=== PATIENT | male | born 1955 | race Caucasian/White ===

== ENCOUNTER 2021-03-02 15:54 | Emergency (ER) | payer OTHER, MEDICARE ==
[2021-03-02 17:28] LABS: BASOPHIL 0.4 % (0-2); EOSINOPHIL 2.5 % (0-7); HCT 42.3 % (42.0-52.0); LYMPHOCYTE 14.2 % (15-48); MCH 32.6 pg (25.0-31.0); MCHC 35.5 g/dL (32.0-36.0); MPV 10.3 fL (6.0-9.5); NEUTROPHIL 74.6 % (41-80); NRBC 0; PLT 129 K/uL (150-400); RDW 13.2 % (11.5-14.0); WBC 6.8 K/uL (4.0-10.5)
[2021-03-02 17:42] LABS: INR 3.23 (0.9-1.2); PROTHROMBIN TIME 31.5 SECONDS (11.4-13.6); PTT 34.6 SECONDS (22.2-34.7)
[2021-03-02 17:58] LABS: ALBUMIN 3.9 g/dL (3.4-5.0); BILIRUBIN - TOTAL 0.8 mg/dL (0.2-1.0); BUN/CREAT RATIO (CALC) 19.6 RATIO; CREATININE 1.12 mg/dL (0.67-1.17); FT4 (FREE T4) 0.9 ng/dL (0.76-1.46); GLOBULIN (CALCULATION) 2.5 g/dL; POTASSIUM 4.3 mmol/L (3.5-5.1); TOTAL PROTEIN 6.4 g/dL (6.4-8.2)
[2021-03-02 18:09] LABS: IRON % SATURATION 32.2 %SAT (20-50)
== END 2021-03-02 23:26 | disposition home or self-care (01) ==
LOC: FER 15:54
PROVIDERS: Emergency Medicine
DX: I49.3 Ventricular premature depolarization (principal); R55 Syncope and collapse; I44.0 Atrioventricular block, first degree; I10 Essential (primary) hypertension; Z95.4 Presence of other heart-valve replacement; Z79.899 Other long term (current) drug therapy
CPT/HCPCS: 36415; 70450; 71045; 80053; 83540; 83550; 83735; 83880; 84100; 84439; 84443; 84484; 85025; 85610; 85730; 93005; J7030

== ENCOUNTER 2021-09-02 17:36 | Emergency (ER) | payer MEDICARE, OTHER ==
[2021-09-02 21:14] LABS: BASOPHIL 0.5 % (0-2); EOSINOPHIL 0.8 % (0-7); HCT 43.9 % (42.0-52.0); HGB 15.4 g/dl (13.2-18.0); LYMPHOCYTE 19.3 % (15-48); MCH 32.1 pg (25.0-31.0); MCHC 35.1 g/dL (32.0-36.0); MCV 91.5 fL (78.0-100.0); MONOCYTE 11.6 % (0-12); MPV 10.7 fL (6.0-9.5); NEUTROPHIL 67.3 % (41-80); NRBC 0; PLT 102 K/uL (150-400); RDW 12.7 % (11.5-14.0); WBC 3.8 K/uL (4.0-10.5)
[2021-09-02 21:23] LABS: ALBUMIN 3.9 g/dL (3.4-5.0); BILIRUBIN - TOTAL 0.8 mg/dL (0.2-1.0); BUN/CREAT RATIO (CALC) 21.9 RATIO; CREATININE 0.96 mg/dL (0.67-1.17); GLOBULIN (CALCULATION) 3.1 g/dL; POTASSIUM 3.9 mmol/L (3.5-5.1)
[2021-09-02 21:49] LABS: INFLUENZA A NAA NEGATIVE (NEGATIVE)
[2021-09-02 21:54] LABS: CORONAVIRUS 2019 SARS-COV-2 POSITIVE (NEGATIVE)
[2021-09-02] MEDS ORDERED: BROMFED DM COU473 ML PO (23:36)
[2021-09-02] MEDS ORDERED: VENTOLIN HFA IN18 GM INH (23:36)
[2021-09-02] MEDS ORDERED: TESSALON PERLE100 MG PO (23:36)
== END 2021-09-02 23:55 | disposition home or self-care (01) ==
LOC: FER 17:36
PROVIDERS: Emergency Medicine Emergency Medical Services
DX: U07.1 COVID-19 (principal); I48.91 Unspecified atrial fibrillation; I11.0 Hypertensive heart disease with heart failure; I50.9 Heart failure, unspecified; Z23 Encounter for immunization; Z88.5 Allergy status to narcotic agent; Z91.041 Radiographic dye allergy status; Z91.013 Allergy to seafood; Z79.01 Long term (current) use of anticoagulants; Z79.82 Long term (current) use of aspirin; Z79.899 Other long term (current) drug therapy
CPT/HCPCS: 36415; 71045; 80053; 85025; Q0245; U0002